=== PATIENT | male | born 1985 | race Caucasian/White ===

== ENCOUNTER 2017-01-22 08:27 | Emergency (ER) | payer MEDICAID ==
[~2017-01-22] VITALS: Ht 157.5 cm; Wt 78.8 kg
[2017-01-22 08:29] VITALS: Ht 157.5 cm; Wt 78.8 kg
[2017-01-22] MEDS ORDERED: AMO500 PO (08:52)
--- NOTE | 2017-01-22 08:58 | ERD ---
ER Documentation Chief Complaint Date/Time DATE: 01/22/17 TIME: 08:[address] X2 DAYS HPI This patient is a 31-year-old male presenting to the emergency department for sore throat for the past 3 days. Symptoms are constant and worsening. Worse when swallowing food or liquid. Alleviating factors include Tylenol. The patient denies cough, nausea, vomiting, diarrhea, chest pain, shortness of breath, or other symptoms. ROS All systems reviewed and are negative except as per history of present illness. Medications Home Meds Active Scripts Amoxicillin* (Amoxicillin*) 500 Mg Cap, 500 MG PO BID for 10 Days, #20 CAP Prov:PITTSDIANA PA-C 01/22/17 PMhx/Soc Medical and Surgical Hx: pt denies Medical Hx, pt denies Surgical Hx Hx Alcohol Use: No Hx Substance Use: No Hx Tobacco Use: No Physical Exam Vitals Vital Signs Date Time Temp Pulse Resp B/P Pulse Ox O2 Delivery O2 Flow Rate FiO2 01/22/17 08:29 99.7 67 18 136/67 99 Physical Exam Const: The patient is resting comfortably in no acute distress. Head: Atraumatic Eyes: Normal Conjunctiva ENT: Normal External Ears, Nose and Mouth. Examination of the posterior pharynx reveals mild bilateral tonsillar hypertrophy with erythema and scant exudate present. The airway is clear. There is no uvular deviation. Neck: Full range of motion..~ No meningismus. Resp: Clear to auscultation bilaterally Cardio: Regular rate and rhythm, no murmurs Abd: Soft, non tender, non distended. Normal bowel sounds Skin: No petechiae or rashes Back: No midline or flank tenderness Ext: No cyanosis, or edema Neur: Awake and alert Psych: Normal Mood and Affect Procedures/MDM 31-year-old male presents for sore throat for the past 2 days. On physical examination the patient has some bilateral tonsillar hypertrophy with scant exudate present which is concerning for tonsillitis. There are no signs of peritonsillar or retropharyngeal abscess. The patient is stable for outpatient management with a prescription for amoxicillin. The patient understands the discharge plan and diagnosis. Close follow-up with the primary care physician was advised. Strict ER return precautions were discussed. Departure Diagnosis: Primary Impression: Tonsillitis Additional Impression: Sore throat Condition: Fair Patient Instructions: Self-Care for Sore Throats [facility] Usted se seymour hecho un examen mdico de control que le indica que no est en randell condicin que requiera tratamiento urgente en el Departamento de Emergencia. Un estudio ms profundo y el tratamiento de westfall condicin pueden esperar sin ningn riesgo hasta que usted sea atendida/o en el consultorio de westfall mdico o randell cl nina. Es responsabilidad suya arreglar randell monika para el seguimiento del vinny. MANEJO DE CONDICIONES NO URGENTES EN EL FUTURO 1) Si usted tiene un mdico de atencin primaria: Usted debera llamar a [place]fall mdico de atencin primaria antes de venir al departamento de emergencia. Despus de las horas de consultorio, westfall doctor o westfall asociado/a est disponible por telfono. El mdico o enfermero de jacquelin en el servicio telefnico puede asesorarle por yash medio para atender el problema, o vinny contrario se puede programar randell monika. 2) Si usted no tiene un mdico de atencin primaria: Llame al mdico o clnica de referencia que aparece abajo jenny las horas de consultorio para hacer randell monika para que le vean. CLINICAS: [facility] [phone] [facility] [phone] [facility] [place] [phone] [facility] [phone] [facility] [phone] [address] [facility]. [phone] [address] Additional Instructions: No mas mejor en 2-3 castro, regresar. Mas peor en 24 horas, regresear rapidamente. Ir a doctor primario in 5-7 castro. Usar instrucciones cuando chris medicamento. DIANA PITTS PA-C Jan 22, 2017 08:58
== END 2017-01-22 09:09 | disposition home or self-care (01) ==
LOC: FTE 08:27
DX: J03.90 Acute tonsillitis, unspecified (principal)
CPT/HCPCS: 99283